=== PATIENT | male | born 1950 | race Caucasian/White ===

== ENCOUNTER 2018-12-29 18:29 | Inpatient (IN) | payer MEDICARE, OTHER ==
--- NOTE | 2018-12-29 18:46 | PDOC ---
Rapid Medical Evaluation Time Seen by Provider: 12/29/18 18:37 Medical Evaluation: Allergies Allergy/AdvReac Type Severity Reaction Status Date / Time codeine [Codeine] Allergy Verified 12/29/18 18:37 12/29/18 18:37 I have performed a brief in-person evaluation of this patient. The patient presents with a chief complaint of: Vertigo today, similar to in the past but worse today. H/o HTN, CABG Pertinent physical exam findings:Stable and non-focal I have ordered the following:labs The patient will proceed to the ED for further evaluation. Discharge Disposition - Diagnosis Vertigo - Referrals - Patient Instructions - Post Discharge Activity
[2018-12-29 19:20] LABS: BASO % 0.7 % (0-2.0); HEMATOCRIT 49.9 % (35.4-49); HEMOGLOBIN 16.1 GM/dL (11.7-16.9); MCH 28.1 pg (25.7-33.7); MCHC 32.3 g/dl (32.0-35.9); MEAN PLT VOLUME 9.4 fl (7.5-11.1); MONO % 5.1 % (3.8-10.2); NEUT % 78.2 % (42.8-82.8); PLATELET COUNT 145 K/MM3 (134-434); RBC 5.74 M/mm3 (4.00-5.60); RDW 14.4 % (11.9-15.9); WHITE BLOOD COUNT 7.9 K/mm3 (4.0-10.0)
[2018-12-29 19:41] LABS: BILIRUBIN,TOTAL 0.4 mg/dL (0.2-1); CALCIUM 8.8 mg/dL (8.5-10.1); CREATININE 1.3 mg/dL (0.55-1.3); POTASSIUM 4.5 mmol/L (3.5-5.1)
[2018-12-29 21:21] LABS: PH,URINE 5.5 (5.0-8.0); URINE APPEARANCE CLEAR; URINE BILIRUBIN NEGATIVE (NEGATIVE); URINE COLOR YELLOW; URINE GLUCOSE (UA) NEGATIVE (NEGATIVE); URINE KETONE NEGATIVE (NEGATIVE); URINE LEUK ESTERASE NEGATIVE (NEGATIVE); URINE NITRITE NEGATIVE (NEGATIVE); URINE PROTEIN NEGATIVE (NEGATIVE); URINE UROBILINOGEN 0.2 mg/dL (0.2-1.0)
--- NOTE | 2018-12-29 21:34 | PDOC ---
History of Present Illness - General Chief Complaint: Lightheaded Stated Complaint: DIZZINESS Time Seen by Provider: 12/29/18 18:37 History Source: Patient, Spouse ( present at bedside.), Old Records Exam Limitations: No Limitations - History of Present Illness Initial Comments: HPI: 68 y/o male presenting to [facility] ER complaining of two episodes of presyncope and loss of memory lasting approx. 3-4 min with return to baseline in between. States he was unable to recognize his . This made him feel scared. States the symptoms have resolved aside from a ringing in R and L ear. Denies associated room spinning, chest pain, SOB, fevers, chills, or diaphoresis. Had a similar episode approx. 2 months ago. He was evaluated at his PCPs clinic and told everything was fine. States he was in his full state of health prior to this episode. PCP: Dr. Bucky Ardon Medical Hx: - S/p Aortic valve replacement in 2010 at [facility]. On ASA. - HTN - HLD Review of Systems: In addition to that documented in the HPI above, the additional ROS was obtained : Constitutional: Denies fevers or chills Head: Denies vision changes ENMT: Denies sore throat CV: Denies chest pain Resp: Denies SOB GI: Denies vomiting or diarrhea : Denies painful urination MSK: Denies recent trauma Skin: Denies new rashes Neuro: Denies new numbness or tingling or weakness Endocrine: Denies polyuria Heme: Denies bleeding or bruising Physical Examination: Constitutional: Well-developed, well-nourished adult male in no acute distress or obvious discomfort. Found semi-fowlers on hospital bed. Alert and oriented x4. Answered all questions appropriately and completely. Speech was non-labored , non-pressured. Head: Normocephalic. No obvious external signs of trauma. Eyes: Pupils 4mm and PERRL bilaterally. EOMI. Lateral nystagmus to R and L that extinguishes. Sclerae white. Conjunctiva moist and not injected. Ears: External auditory canals and tympanic membranes pearly acosta. Hearing grossly intact. Nose: No nasal discharge. Throat: Oral cavity and pharynx normal. No inflammation, swelling, exudate, or lesions. Uvula midline. Neck: Supple, trachea is midline. No JVD. No carotid bruit. Cardiovascular / Chest: Regular rate and regular rhythm. No murmur, rubs, clicks , or gallops. Peripheral pulses: radial pulses full. Large midsternal post surgical scar. Respiratory: Breathing unlabored. Equal chest rise and fall. Clear to auscultation bilaterally. No stridor, no wheezing, no rhonchi. Gastrointestinal: abdomen is soft, non-tender, non-distended. No pulsatile masses. No overlying skin lesions or obvious signs of trauma. Neuro: Alert and oriented. Moving all four extremities spontaneously. No focal deficits. Cranial nerves intact. Sensation to all four extremities intact. Upper and lower extremity: proximal and distal strength 5/5. Smooth Plater strength 5/5 - equal and symmetric. Plantar flexion and dorsiflexion 5/5. Intact finger to nose, rapid alternating movements, and heel to yin. Gait normal. No nuchal rigidity. Skin: Warm, dry, and intact. No bruising, rashes, or other lesions. Psych: Affect: appropriate. Mood: normal. MDM: *Reviewed vital signs, nursing notes, and prior visit documentation (if available). 68 y/o male presenting with vague episodes of presyncope and memory loss with residual bilateral tinnitus. H/o of similar episode two months ago. No recent neurologic evaluation. Afebrile. Vitals unremarkable for hypotension or tachycardia. Physical exam as described above. Neurologically intact. Possible TIA versus cardiac presyncope. Risk factors including HTN and HLD. Already on ASA and Statin therapy. CBC unremarkable for anemia or leukocytosis. No significant electrolyte derangement. EKG unremarkable for ischemic findings. No changes when compared to previous EKG dated 12 November 2012. Troponin not elevated. Will repeat troponin and EKG at three hours. Will consult with neurology service for consideration of admission. 22:[address] Khan. Verbally appraised of the pts HPI, ED course, and current plan of management. Will evaluate as inpatient. 22:[address] Melton through office answering service. Awaiting call back. Unable to reach Dr. Melton after three pages. Microblog sent to [facility] for admission. 01:27 Telephone consultation with resident Dr. Sampson. Verbally appraised of the pts HPI, ED course, and current plan of management. Will admit pt to stroke/tele for attending Dr. Desai. Marcus Sal M.D., PGY1 Emergency Medicine Resident Past History - Past Medical History Allergies/Adverse Reactions: Allergies Allergy/AdvReac Type Severity Reaction Status Date / Time codeine [Codeine] Allergy Verified 12/29/18 18:37 Home Medications: Ambulatory Orders Aspirin [ASA -] 81 mg PO DAILY 12/29/18 Atorvastatin Ca [Lipitor] 20 mg PO HS 12/29/18 Metoprolol Succinate [Toprol Xl] 25 mg PO DAILY 12/29/18 Ramipril 2.5 mg PO DAILY 12/29/18 COPD: No HTN: Yes - Surgical History Cardiac Surgery: Yes (aortic regurg) - Immunization History Immunization Up to Date: No - Suicide/Smoking/Psychosocial Hx Smoking Status: No Smoking History: Never smoked Number of Cigarettes Smoked Daily: 0 Hx Alcohol Use: No Drug/Substance Use Hx: No *Physical Exam - Vital Signs Last Vital Signs Temp Pulse Resp BP Pulse Ox 97.7 F 67 18 149/81 98 12/29/18 18:41 12/29/18 18:41 12/29/18 18:41 12/29/18 18:41 12/29/18 18:41 ED Treatment Course - LABORATORY CBC & Chemistry Diagram: 12/29/18 19:14 12/29/18 19:14 - ADDITIONAL ORDERS Additional order review: Laboratory Results 12/29/18 12/29/18 20:40 19:14 Sodium 140 Potassium 4.5 Chloride 108 H Carbon Dioxide 26 Anion Gap 6 L BUN 28 H Creatinine 1.3 Est GFR (CKD-EPI)AfAm 64.98 Est GFR (CKD-EPI)NonAf 56.06 Random Glucose 95 Calcium 8.8 Total Bilirubin 0.4 AST 30 ALT 51 Alkaline Phosphatase 55 Troponin I 0.02 Total Protein 7.0 Albumin 4.0 Urine Color Yellow Urine Appearance Clear Urine pH 5.5 Ur Specific [place] 1.012 Urine Protein Negative Urine Glucose (UA) Negative Urine Ketones Negative Urine Blood Negative Urine Nitrite Negative Urine Bilirubin Negative Urine Urobilinogen 0.2 Ur Leukocyte Esterase Negative 12/29/18 19:14 RBC 5.74 H MCV 87.0 MCHC 32.3 RDW 14.4 MPV 9.4 Neutrophils % 78.2 Lymphocytes % 13.0 Monocytes % 5.1 Eosinophils % 3.0 D Basophils % 0.7 - RADIOLOGY Radiology Studies Ordered: Category Date Time Status HEAD CT WITHOUT CONTRAST [CT] Stat CT Scan 12/29/18 20:44 Ordered *DC/Admit/Observation/Transfer Diagnosis at time of Disposition: Pre-syncope, Transient ischemic attack (TIA) - Discharge Dispostion Condition at time of disposition: Stable Decision to Admit order: Yes - Referrals Referrals: Bucky Ardon MD [Primary Care Provider] - - Patient Instructions - Post Discharge Activity
--- NOTE | 2018-12-29 22:01 | PDOC ---
Documentation entered by Enoc Cheema SCRIBE, acting as scribe for Pineda Almonte MD. Pineda Almonte MD: This documentation has been prepared by the Anette cortes Matthew, SCRIBE, under my direction and personally reviewed by me in its entirety. I confirm that the documentation accurately reflects all work, treatment, procedures, and medical decision making performed by me. Attending Attestation - Resident Resident Name: Marcus Sal - ED Attending Attestation I have performed the following: I have examined & evaluated the patient, The case was reviewed & discussed with the resident, I agree w/resident's findings & plan, Exceptions are as noted - HPI HPI: 12/29/18 21:33 Patient is a 68 year old male with a significant past medical history of HTN, HLD, who presents to the ED with 2 transient episodes of confusion that occurred earlier this afternoon. Patient reports experiencing an episode of dizziness this afternoon, stating that he felt like he was going to faint. Denies any room spinning. Pt also states that during this episode he was very confused and did not know who is was. This lasted 3 minutes. He reports experiencing a similar transient episode shortly after, prompting him to come into the ED for further evaluation. Denies chest pain, sob. Denies nausea, vomiting. Denies fevers, chills. Denies contact with sick individuals, out of state travelling. Denies dysuria, hematuria. Denies constipation, diarrhea. Denies any other symptoms. Allergies: Codeine Social history: No smoking. No alcohol. No illicit drugs. Surgical history: None PMD: Dr. Bucky rodriguez - Physicial Exam PE: 12/29/18 21:59 "GENERAL: Awake, alert, and fully oriented, in no acute distress. HEAD: No signs of trauma EYES: PERRLA, EOMI, sclera anicteric, conjunctiva clear ENT: Auricles normal inspection, hearing grossly normal, nares patent, oropharynx clear without exudates. Moist mucosa NECK: Nontender, no stepoffs, Normal ROM, supple, no lymphadenopathy, JVD, or masses LUNGS: Breath sounds equal, clear to auscultation bilaterally. No wheezes, and no crackles HEART: Regular rate and rhythm, normal S1 and S2, no murmurs, rubs or gallops ABDOMEN: Soft, nontender, normoactive bowel sounds. No guarding, no rebound. No masses EXTREMITIES: Normal range of motion, no edema. No clubbing or cyanosis. No cords, erythema, or tenderness NEUROLOGICAL: Cranial nerves II through XII intact. 5/5 strength and sensation in all extremities, Normal speech, normal gait, normal cerebellar function SKIN: Warm, Dry, normal turgor, no rashes or lesions noted. - Medical Decision Making 12/29/18 22:00 68 M with 2 episodes of lightheadedness/presyncope and confusion. Will evaluate for cardiac arrhythmia. Pt with no neuro deficits now but also consider TIA. - Labs - CTH - EKG - Neuro c/s
--- NOTE | 2018-12-30 01:14 | PN ---
Teaching Attending Note Name of Resident: Lázaro Sampson ATTENDING PHYSICIAN STATEMENT I saw and evaluated the patient. I reviewed the resident's note and discussed the case with the resident. I agree with the resident's findings and plan as documented. SUBJECTIVE: Patient is a 68 year old man with a PMH of HTN, ?open-heart/aortic surgery and HLD who presents to the ER with 2 transient episodes of confusion that occurred earlier this afternoon. Patient reports experiencing an episode of dizziness this afternoon, stating that he felt like he was going to faint. Denies any room spinning. Also states that during this episode he was very confused and did not know who his was. This lasted 3 minutes. He reports experiencing a similar transient episode shortly after, prompting him to come into the ER. Denies chest pain, sob. Denies nausea, vomiting. Denies fevers, chills. Denies contact with sick individuals, out of state travelling. Denies dysuria, hematuria. Denies constipation, diarrhea. OBJECTIVE: Alert and not orthostatic Vital Signs Period Temp Pulse Resp BP Sys/Garcia Pulse Ox Last 24 Hr 97.7 F 62-67 16-18 149-153/81-83 98-99 HEENT: No Jaundice, eye redness or discharge, PERRLA, EOMI. Normocephalic, atraumatic. External ears are normal and hearing is grossly intact. No nasal discharge. Neck: Supple, nontender. No palpable adenopathy or thyromegaly. No JVD Chest: Good effort. Clear to auscultation and percussion. Heart: Regular. No S3 or rub; 2/6 NU Abdomen: Not distended, soft, nontender and no HSM. No rebound or guarding. Normal bowel sounds. Ext: Peripheral pulses intact. No leg edema. Skin: Warm and dry. No petechiae, rash or ecchymosis. Neuro: Alert. Oriented x3. CN 2-12 grossly intact. Sensation grossly intact in all four extremities and DTR are symmetric. Psych: Appropriate mood and affect. Good insight. Current Medications Generic Name Dose Route Start Last Admin Trade Name Freq PRN Reason Stop Dose Admin Sodium Chloride 1,000 mls @ 75 mls/hr 12/30/18 01:30 12/30/18 01:50 Normal Saline - IV 12/30/18 14:49 75 mls/hr ASDIR ANG Administration Home Medications Medication Instructions Recorded Aspirin [ASA -] 81 mg PO DAILY 12/29/18 Atorvastatin Ca [Lipitor] 20 mg PO HS 12/29/18 Metoprolol Succinate [Toprol Xl] 25 mg PO DAILY 12/29/18 Ramipril 2.5 mg PO DAILY 12/29/18 Abnormal Lab Results 12/29/18 12/29/18 19:14 19:14 RBC 5.74 H Hct 49.9 H Chloride 108 H Anion Gap 6 L BUN 28 H ASSESSMENT AND PLAN: 1. TIA - Patient symptom free at this time. No acute pathology on head CT. EKG is NSR with no significant ST-T wave changes. Will monitor on telemetry, get ECHO, carotid doppler, fasting lipids, TSH and brain MRI. Consult neurology and PT. 2. Overweight - Counseled on the risks associated with being overweight. Will provide patient all the necessary assistance, counseling and positive reinforcement to facilitate weight loss. Consult weigher bulker. 3. Hypertension - Restart outpatient antihypertensive drugs and revise regimen to ensure smooth [id number] good BP control. Nonpharmacologic measures to control hypertension like weight loss, salt restriction and exercise discussed. 4. DVT prophylaxis - Lovenox 40 mg SQ q 24 hours. 5. Advance directives - Full code
[2018-12-30] MEDS ORDERED: SODIUM CHLORIDE 1,000 ML IV SCH (01:30)
--- NOTE | 2018-12-30 02:27 | HP ---
CHIEF COMPLAINT: confusion PCP: Bucky Ardon HISTORY OF PRESENT ILLNESS: 68 year old male wit chawla hx of htn, hld, and vascular disease presents to the hospital with for 2 episodes of confusion and dizziness that occurred at 3pm today. Reports that he woke up around 3 and rolled over in bed when he noticed that he was dizzy and couldn't remember where his worked. Reports the episode lasting for about 3-4 minutes then resolving. Several minutes later he states that it recurred for a couple of minutes before resolving again. During the episode, he reports no loss of consciousness, headaches, blurry vision, chest pain, palpitations shortness of breath, nausea, vomiting, diarrhea , fevers, or chills. Currently states that he is asymptomatic and not having any more confusion or dizziness/vertigo. Reports no recent travel or sick contacts. ER course was notable for: (1) Head CT - (2) labs norm (3) Recent Travel: denies PAST MEDICAL HISTORY: HTN, HLD, vascular disease PAST SURGICAL HISTORY: open heart surgery in 2010 at [facility] for an "aorta" issue, but patient was not 100% clear during history Social History: Smoking: former smoker, started at 6yo, quit in 2010, smoked 2ppd Alcohol: denies Drugs: denies Allergies codeine [Codeine] Allergy (Verified 12/29/18 18:37) HOME MEDICATIONS: Home Medications Medication Instructions Recorded Aspirin [ASA -] 81 mg PO DAILY 12/29/18 Atorvastatin Ca [Lipitor] 20 mg PO HS 12/29/18 Metoprolol Succinate [Toprol Xl] 25 mg PO DAILY 12/29/18 Ramipril 2.5 mg PO DAILY 12/29/18 REVIEW OF SYSTEMS CONSTITUTIONAL: Absent: fever, chills, diaphoresis, generalized weakness, malaise, loss of appetite, weight change HEENT: Absent: rhinorrhea, nasal congestion, throat pain, throat swelling, difficulty swallowing, mouth swelling, ear pain, eye pain, visual changes CARDIOVASCULAR: Absent: chest pain, syncope, palpitations, irregular heart rate, lightheadedness , peripheral edema RESPIRATORY: Absent: cough, shortness of breath, dyspnea with exertion, orthopnea, wheezing, stridor, hemoptysis GASTROINTESTINAL: Absent: abdominal pain, abdominal distension, nausea, vomiting, diarrhea, constipation, melena, hematochezia GENITOURINARY: Absent: dysuria, frequency, urgency, hesitancy, hematuria, flank pain, genital pain MUSCULOSKELETAL: Absent: myalgia, arthralgia, joint swelling, back pain, neck pain SKIN: Absent: rash, itching, pallor HEMATOLOGIC/IMMUNOLOGIC: Absent: easy bleeding, easy bruising, lymphadenopathy, frequent infections ENDOCRINE: Absent: unexplained weight gain, unexplained weight loss, heat intolerance, cold intolerance NEUROLOGIC: Absent: headache, focal weakness or paresthesias, dizziness, unsteady gait, seizure, mental status changes, bladder or bowel incontinence PSYCHIATRIC: Absent: anxiety, depression, suicidal or homicidal ideation, hallucinations. PHYSICAL EXAMINATION Vital Signs - 24 hr 12/29/18 12/30/18 18:41 01:37 Temperature 97.7 F Pulse Rate 67 Pulse Rate [ 62 Right] Respiratory 18 16 Rate Blood Pressure 149/81 Blood Pressure 153/83 [Right Arm] O2 Sat by Pulse 98 99 Oximetry (%) GENERAL: A&Ox3, no acute distress EYES: PERRLA, EOMI, conjunctival injetion bilaterally, mild nystagmus on horizontal gaze noted ENT: Moist mucus membranes NECK: No JVD LUNGS: CTA, no wheezes HEART: soft systolic murmur noted on exam, otherwise RRR ABDOMEN: Soft, nontender, BS present MUSCULOSKELETAL: No CVA Tenderness EXTREMITIES: 2+ pulses, no edema. NEUROLOGICAL: Cranial nerves II-XII intact. No focal deficits Laboratory Results - last 24 hr 12/29/18 12/29/18 12/29/18 19:14 19:14 20:40 WBC 7.9 RBC 5.74 H Hgb 16.1 Hct 49.9 H MCV 87.0 MCH 28.1 MCHC 32.3 RDW 14.4 Plt Count 145 MPV 9.4 Absolute Neuts (auto) 6.2 Neutrophils % 78.2 Lymphocytes % 13.0 Monocytes % 5.1 Eosinophils % 3.0 D Basophils % 0.7 Nucleated RBC % 0 Sodium 140 Potassium 4.5 Chloride 108 H Carbon Dioxide 26 Anion Gap 6 L BUN 28 H Creatinine 1.3 Est GFR (CKD-EPI)AfAm 64.98 Est GFR (CKD-EPI)NonAf 56.06 Random Glucose 95 Calcium 8.8 Total Bilirubin 0.4 AST 30 ALT 51 Alkaline Phosphatase 55 Troponin I 0.02 Total Protein 7.0 Albumin 4.0 Urine Color Yellow Urine Appearance Clear Urine pH 5.5 Ur Specific [place] 1.012 Urine Protein Negative Urine Glucose (UA) Negative Urine Ketones Negative Urine Blood Negative Urine Nitrite Negative Urine Bilirubin Negative Urine Urobilinogen 0.2 Ur Leukocyte Esterase Negative 12/29/18 23:00 WBC RBC Hgb Hct MCV MCH MCHC RDW Plt Count MPV Absolute Neuts (auto) Neutrophils % Lymphocytes % Monocytes % Eosinophils % Basophils % Nucleated RBC % Sodium Potassium Chloride Carbon Dioxide Anion Gap BUN Creatinine Est GFR (CKD-EPI)AfAm Est GFR (CKD-EPI)NonAf Random Glucose Calcium Total Bilirubin AST ALT Alkaline Phosphatase Troponin I 0.02 Total Protein Albumin Urine Color Urine Appearance Urine pH Ur Specific [place] Urine Protein Urine Glucose (UA) Urine Ketones Urine Blood Urine Nitrite Urine Bilirubin Urine Urobilinogen Ur Leukocyte Esterase ASSESSMENT/PLAN: 68 year old male wit chawla hx of htn, hld, and vascular disease presents to the hospital with for 2 episodes of confusion and dizziness that occurred at 3pm today #Altered Mental Status: unclear etiology, could be related to TIA/CVA vs dehydration -orthostatic vitals -CT head negative -will get MRI -neuro consultation -telemetry monitoring -echocardiogram -carotid doppler -continue home ASA #Hypertension -continue ramipril and metoprolol #Hyperlipidemia -continue atorvastatin FEN -NS @ 75cc/hr -lytes normal -cholesterol controlled diet Prophylaxis -scds Disposition -admit tele obs Visit type - Emergency Visit Emergency Visit: Yes Care time: The patient presented to the Emergency Department on the above date and was hospitalized for further evaluation of their emergent condition. - New Patient This patient is new to me today: Yes Date on this admission: 12/30/18 - Critical Care Critical Care patient: No
[2018-12-30 02:47] VITALS: BMI 28.0
[2018-12-30 07:44] LABS: INR 1.02 (0.83-1.09)
[2018-12-30 08:11] LABS: CALCIUM 8.4 mg/dL (8.5-10.1); POTASSIUM 4.2 mmol/L (3.5-5.1)
--- NOTE | 2018-12-30 09:41 | CON.NEURO ---
Consult - Alcohol/Substance Use Hx Alcohol Use: No - Smoking History Smoking history: Former smoker Have you smoked in the past 12 months: No Aproximately how many cigarettes per day: 0 Home Medications - Allergies Allergies/Adverse Reactions: Allergies Allergy/AdvReac Type Severity Reaction Status Date / Time codeine [Codeine] Allergy Verified 12/29/18 18:37 - Home Medications Home Medications: Ambulatory Orders Aspirin [ASA -] 81 mg PO DAILY 12/29/18 Atorvastatin Ca [Lipitor] 20 mg PO HS 12/29/18 Metoprolol Succinate [Toprol Xl] 25 mg PO DAILY 12/29/18 Ramipril 2.5 mg PO DAILY 12/29/18 Physical Exam-Neuro Vital Signs: Vital Signs Temperature 97.5 F L 12/30/18 06:00 Pulse Rate 64 12/30/18 08:57 Respiratory Rate 18 12/30/18 06:00 Blood Pressure 135/63 12/30/18 08:57 O2 Sat by Pulse Oximetry (%) 95 12/30/18 02:15 Labs: CBC, BMP 12/29/18 19:14 12/30/18 05:30 INR, PTT INR 1.02 (0.83-1.09) 12/30/18 05:30 Assessment/Plan cc Episode of dizziness and memory lapse HPI 68 year old male history of HTN,HLD, S/P CABG. Patient has two episode of confusion and dizziness, which he describes as feeling of fuzyzy and everything turning black. He could not remember anything for those three minute. Patient denies any otehr focal neurological symptoms, including seizure like activity, hemiparesis, numbness or facial twtitching. His ct head is normal. He denies any previous episode in past. Patient is back to normal, and waiting for mri of brain and being monitered in tele. PMHHTN, HLD, vascular disease [SH open heart surgery in 2010 at [facility] for an "aorta" issue, but patient was not 100% clear during history Social History: Smoking: former smoker, started at 6yo, quit in 2010, smoked 2ppd Alcohol: denies Drugs: denies Allergies codeine [Codeine] Allergy (Verified 12/29/18 18:37) HOME MEDICATIONS: Home Medications Medication Instructions Recorded Aspirin [ASA -] 81 mg PO DAILY 12/29/18 Atorvastatin Ca [Lipitor] 20 mg PO HS 12/29/18 Metoprolol Succinate [Toprol Xl] 25 mg PO DAILY 12/29/18 Ramipril 2.5 mg PO DAILY 12/29/18 ROS reviewed in chart NEUROLOGICAL EXAMINATION Alert oriented x 3, speech is normal, no neck stiffness EOMI, PUPILS REACTIVE , no face asymmetry, vf normal 5/5 all ext sensation is normal gait and coordination is normal ct head is normal Assessment/Plan 68 year old male history of HTN,HLD, s/p CABG had two episode of dizziness and confusion, these episodes appears to be global hypoperfusion of brain rather than TIA. Plan: life style modification and risk factor treatment discussed with patient - tele monitoring - mri of brain and carotid ultrasound - continue aspirin and increase dose of lipitor to 40 mg once a day - if any positive findings on mri of brain , consider switching to plavix Thanking you so much Aung Khan MD
[2018-12-30] MEDS: RAMIPRIL 2.5 MG CAPSULE (FP) PO SCH (10:20)
[2018-12-30] MEDS: ASPIRIN 81 MG CHEWABLE TABLETS PO SCH (10:20)
[2018-12-30] MEDS: metoPROLOL SUCCINATE 25 MG TAB.SR.24H (FP) PO SCH (10:20)
--- NOTE | 2018-12-30 10:56 | ECHO ---
Version: 1 Name: KESHAV DESAI Exam: Adult Echocardiogram Study Date: 12/30/2018, 7:54 AM Age: 68 Years MMode/2D Measurements & Calculations IVSd: 0.99 cm LVIDs: 2.8 cm LVIDd: 4.5 cm LVPWd: 0.89 cm LVOT diam: 2.02 cm Ao root diam: 4.3 cm LA dimension: 3.0 cm Doppler Measurements & Calculations MV E max jarett: 74.2 cm/sec Med E/e': 9.7 MV A max jarett: 65.5 cm/sec Med Peak E' Jarett: 7.6 cm/sec MV E/A: 1.13 Lat E/e': 8.7 Lat Peak E' Jarett: 8.5 cm/sec Ao max P.2 mmHg Ao V2 max: 160.0 cm/sec AI P1/2t: 808.3 msec TR max jarett: 188.2 cm/sec TR max P.6 mmHg Procedure A complete two-dimensional transthoracic echocardiogram was performed (2D, M-mode, Doppler and color flow Doppler). Left Ventricle The left ventricular size, thickness and function are normal. Ejection Fraction = 60%. The transmitr al spectral Doppler flow pattern is suggestive of impaired LV relaxation. The left ventricular wall mot ion is normal. Right Ventricle The right ventricle is normal in size and function. Atria Normal left and right atrial size and function. Mitral Valve The mitral valve is normal in structure and function. Tricuspid Valve The tricuspid valve is normal in structure and function. There is Trace to mild tricuspid regurgitat ion. Right ventricular systolic pressure is 20 mmhg. Aortic Valve There is moderate to severe aortic valve thickening. No hemodynamically significant valvular aortic stenosis. Trace aortic regurgitation. Pulmonic Valve The pulmonic valve is not well visualized. Great Vessels The aortic root is normal size. Pericardium/Pleura There is no pericardial effusion. There is no pleural effusion. Summary Statements The left ventricular size, thickness and function are normal Ejection Fraction = 60%. The right ventricle is normal in size and function. The mitral valve is normal in structure and function. There is Trace to mild tricuspid regurgitation. Right ventricular systolic pressure is 20 mmhg. There is moderate to severe aortic valve thickening. No hemodynamically significant valvular aortic stenosis. Trace aortic regurgitation. MD Ludwig Orantes 12/30/2018, 9:55 AM Ordering Physician: Lázaro Sampson Performed By: Lilian Knight
[2018-12-30] MEDS ORDERED: LORazepam 2 MG/ML SDV VIAL ONE (11:09)
--- NOTE | 2018-12-30 11:14 | RAPID ---
Physical Examination Vital Signs: Vital Signs Temperature 98 F 12/30/18 09:29 Pulse Rate 60 12/30/18 09:29 Respiratory Rate 18 12/30/18 09:29 Blood Pressure 135/75 12/30/18 09:29 O2 Sat by Pulse Oximetry (%) 95 12/30/18 02:15 Labs: CBC, BMP 12/29/18 19:14 12/30/18 05:30 Rapid Response - Rapid Response Assessment: rapid response called pt c/o of dizziness and chest pain and seeing colors 130/80s, HR 57, 94% RA agitated AOX3 CTAB RRR NTND Neuro no focal deficits see NIHSS. pt admitted for ams possibly 2/2 TIA labs this AM have been nl trop negx2, neg CT head echo: The left ventricular size, thickness and function are normal Ejection Fraction = 60%. The right ventricle is normal in size and function. The mitral valve is normal in structure and function. There is Trace to mild tricuspid regurgitation. Right ventricular systolic pressure is 20 mmhg. There is moderate to severe aortic valve thickening. No hemodynamically significant valvular aortic stenosis. Trace aortic regurgitatio will call code acosta and rpt labs ekg done and unchanges w/o ischemic changes rpt trops given cp and cardiac pmh will rpt head ct brain neck CTA CXR carotid u/s Suspected CVA - NIH Stroke Scale/Score Level of consciousness: Alert Ask patient the month and their age: Answers both correctly Ask patient to open & close eyes; make fist and let go: Obeys both correctly Best gaze (horizontal eye movement): Normal Visual field testing: No visual field loss Facial paresis (Show teeth/raise eyebrows/close eyes tight): Normal symmetrical movement Motor Function: Left Arm: Normal Motor Function: Right Arm: Normal (extends arm 90 (or 45) degrees for 10 seconds without drift Motor Function: Left Leg: Normal (extends leg 30 degrees for 5 seconds without drift) Motor Function: Right Leg: Normal (extends leg 30 degrees for 5 seconds without drift) Limb Ataxia: No ataxia Sensory(Use pinprick test arms,legs,trunk,face/side to side): Normal Best language (Describe picture, name items, read sentences): No Aphasia Dysarthria (read several words): Normal articulation Extinction and Inattention: No abnormality NIH Stroke Scale Score: 0
[2018-12-30] MEDS ORDERED: LORazepam 2 MG/ML SDV VIAL IVPUSH ONE ×2 (11:20→11:40)
[2018-12-30 11:25] LABS: BASO % 0.9 % (0-2.0); EOS % 5.5 % (0-4.5); HEMATOCRIT 51.5 % (35.4-49); HEMOGLOBIN 16.4 GM/dL (11.7-16.9); MCHC 31.8 g/dl (32.0-35.9); MEAN PLT VOLUME 9.5 fl (7.5-11.1); MONO % 7.8 % (3.8-10.2); NEUT % 62.8 % (42.8-82.8); PLATELET COUNT 146 K/MM3 (134-434); RBC 5.85 M/mm3 (4.00-5.60); RDW 14.3 % (11.9-15.9); WHITE BLOOD COUNT 7.3 K/mm3 (4.0-10.0)
--- NOTE | 2018-12-30 11:40 | CONSULT ---
Consult Consult Specialty:: Pulm/CCM Referred by:: Dr. Nielson Reason for Consultation:: suspected stroke - History of Present Illness History of Present Illness: 68 yo M hx of htn, hld, and CAD s/p CABG admitted to the hospital for AMS and dizziness being worked up for stroke. Rapid response was called around 10:30am for acute chest pain, seeing colors, and dizziness. [facility] flood was then called for AMS. During the hospitalization, trop negative x 2, CT head negative, ECHO is essentially wnl. Essentially normal neuro exam performed by international marketing coordinator who responded to the code. Vitals are stable. - Alcohol/Substance Use Hx Alcohol Use: No - Smoking History Smoking history: Former smoker Have you smoked in the past 12 months: No Aproximately how many cigarettes per day: 0 Home Medications - Allergies Allergies/Adverse Reactions: Allergies Allergy/AdvReac Type Severity Reaction Status Date / Time codeine [Codeine] Allergy Verified 12/29/18 18:37 - Home Medications Home Medications: Ambulatory Orders Aspirin [ASA -] 81 mg PO DAILY 12/29/18 Atorvastatin Ca [Lipitor] 20 mg PO HS 12/29/18 Metoprolol Succinate [Toprol Xl] 25 mg PO DAILY 12/29/18 Ramipril 2.5 mg PO DAILY 12/29/18 Physical Exam Vital Signs: Vital Signs Temperature 98 F 12/30/18 09:29 Pulse Rate 60 12/30/18 09:29 Respiratory Rate 18 12/30/18 09:29 Blood Pressure 135/75 12/30/18 09:29 O2 Sat by Pulse Oximetry (%) 95 12/30/18 02:15 Constitutional: Yes: No Distress Cardiovascular: Yes: Regular Rate and Rhythm, S1, S2. No: Murmur Respiratory: Yes: CTA Bilaterally Neurological: Yes: Alert, Oriented, Other (Neuro exam not complete as patient was being transported to CT). No: Numbness, Paresthesia, Weakness ...Motor Strength: WNL Labs: CBC, BMP 12/30/18 11:00 Assessment/Plan 68 yo M hx of htn, hld, and CAD s/p CABG admitted to the hospital for AMS being worked up for TIA. Rapid response and haven flood called on the patient due to similar presenting symptoms at rest. Now being evaluated by CCM. Neuro: AAO x 2, global hypoperfusion vs. TIA - previous negative CT head - will f/u on repeat CT head and CTA neck - cont. to trend mental status CV: h/o CAD s/p CABG, chest pain, HTN, HLD - ACS workup, cycle trop to peak Pulm: stable - O2 sat 94% on RA - supplemental O2 to maintain 100% for better perfusion Case discussed with ICU attending. Patient is currently hemodynamically stable and will not require thrombolytics. Will follow up on ACS workup, CT and CTA. No emergent need for ICU level of care for now but will admit to ICU should he becomes hemodynamically unstable. Catrachito King PGY3 Visit type - Emergency Visit Emergency Visit: No - New Patient This patient is new to me today: Yes Date on this admission: 12/30/18 - Critical Care Critical Care patient: No Total Critical Care Time (in minutes): 20
[2018-12-30 12:03] LABS: ALBUMIN 3.7 g/dl (3.4-5.0); BILIRUBIN,TOTAL 0.6 mg/dL (0.2-1); CALCIUM 8.5 mg/dL (8.5-10.1); CREATININE 1.1 mg/dL (0.55-1.3); PHOSPHOROUS 2.5 mg/dL (2.5-4.9); POTASSIUM 4.3 mmol/L (3.5-5.1); TOT PROT 6.7 g/dl (6.4-8.2)
--- NOTE | 2018-12-30 12:06 | EKG ---
Test Reason : Blood Pressure : / mmHG Vent. Rate : 071 BPM Atrial Rate : 071 BPM P-R Int : 186 ms QRS Dur : 092 ms QT Int : 386 ms P-R-T Axes : 035 064 009 degrees QTc Int : 419 ms NORMAL SINUS RHYTHM NORMAL ECG WHEN COMPARED WITH ECG OF 29-DEC-2018 23:14, NO SIGNIFICANT CHANGE WAS FOUND Confirmed by MD Dorsey Daniel ([id number]) on 12/30/2018 12:05:42 PM Referred By: Confirmed By:Juan Dorsey MD
--- NOTE | 2018-12-30 12:07 | EKG ---
Test Reason : Blood Pressure : / mmHG Vent. Rate : 057 BPM Atrial Rate : 057 BPM P-R Int : 190 ms QRS Dur : 094 ms QT Int : 424 ms P-R-T Axes : -07 054 021 degrees QTc Int : 412 ms SINUS BRADYCARDIA OTHERWISE NORMAL ECG WHEN COMPARED WITH ECG OF 29-DEC-2018 19:03, NO SIGNIFICANT CHANGE WAS FOUND Confirmed by MD Dorsey Daniel ([id number]) on 12/30/2018 12:07:23 PM Referred By: Confirmed By:Juan Dorsey MD
--- NOTE | 2018-12-30 12:08 | EKG ---
Test Reason : Blood Pressure : / mmHG Vent. Rate : 066 BPM Atrial Rate : 066 BPM P-R Int : 186 ms QRS Dur : 100 ms QT Int : 394 ms P-R-T Axes : 049 059 040 degrees QTc Int : 413 ms NORMAL SINUS RHYTHM NORMAL ECG WHEN COMPARED WITH ECG OF 18-AUG-2011 09:56, QUESTIONABLE CHANGE IN QRS AXIS Confirmed by MD Dorsey Daniel ([id number]) on 12/30/2018 12:08:25 PM Referred By: Confirmed By:Juan Dorsey MD
--- NOTE | 2018-12-30 12:09 | CONSULT ---
Admitting History and Physical - Admission History of Present Illness: 68 yo M hx of htn, hld, and CAD s/p CABG admitted to the hospital for AMS, 2 episodes of confusion and dizziness being worked up for stroke. Rapid response was called around 10:30am for acute chest pain, seeing colors, and dizziness. [facility] flood was then called for AMS. During the hospitalization, trop negative x 2, CT head negative, ECHO is essentially wnl. Essentially normal neuro exam performed by management intern who responded to the code. Vitals are stable. History Source: Patient, Family Member Limitations to Obtaining History: No Limitations - Smoking History Smoking history: Former smoker Have you smoked in the past 12 months: No Aproximately how many cigarettes per day: 0 - Alcohol/Substance Use Hx Alcohol Use: No History - Admission Reason For Visit: TRANSIENT ISHCEMIC ATTACK, PRE-SYNCOPE - Diagnostics X-ray: Report Reviewed CT Scan: Report Reviewed - General Mental Status: Alert and Oriented, Awake and Alert, Able to Follow Commands Attention: Intact Ability to Follow Directions: Excellent Head/Neck Control: WFL - Hearing Hearing: Normal Speech Evaluation - Communication Primary Language: WOLOF Secondary Language: SCOTTISH (fluent) Communication: Yes: Within Normal Limits Oral Expression Ability: Yes: No Impairment - Speech Production Able to Make Needs Known: Yes: WNL Intelligibility: Yes: WNL - Speech Characteristics Voice Loudness: Normal Voice Pitch: Yes: Normal Voice Phonatory-based Quality: Yes: Normal Speech Pattern: Normal Speech Clarity: < 100% Nasal Resonance: Normal Articulation: Yes: Precise - Language/Auditory Comprehension Follows: Yes: 2 Stage Simple Commands Observation: Able to respond to yes/no queries: Yes, Yes/No Confusion: No, Comprehends Conversational Speech: Yes - Language/Verbal Expression Able to Respond to Simple Queries: Yes: WNL Able to Communicate Wants and Needs: Yes: WNL Functional Communication Status: Yes: WNL - 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[employer] Memory: Yes: WNL Short Term Memory: Yes: WNL - Swallow Evaluation/Bedside Assessment Current Nutritional Intake: Regular, Thin Liquids Oral Secretions: Yes: WFL Dentition: Yes: Adequate Facial Symmetry at Rest: Symmetrical Facial Symmetry on Retraction: Symmetrical Sensation: Normal Against Resistance Opening: Normal Against Resistance Closing: Normal Pucker Lips: Normal Smile: Normal Lingual Movement: Normal, Symmetric Lingual Speed of Movement: Normal Lingual Movement Strgth Against Opposition: Normal Laryngeal Elevation: WFL Laryngeal Movement: Able to Palpate Rate of Intake: WFL Bolus Size: WFL Chewing: WFL Oral Prep Time: WFL A-P Transit: WFL Pocketing: None Timing of Swallow: WFL Coughing/Throat Clear: No Change in Voice: No Recommendations - Speech Evaluation, Impression/Plan Impression: Speech production, language, cognition, swallowing intact. - Dysphagia Impressions/Plan Swallowing Skills: WFL Dysphagia Impressions: No Impairment *Silent aspiration: cannot be R/O at bedside - Recommendations Diet Consistency: Regular Medication Administration: Whole with water Liquids: Thin Liquids
[2018-12-30] MEDS: ATORVASTATIN CA 40 MG TABLET (FP) PO SCH (21:03)
[2018-12-30] MEDS ORDERED: ATORVASTATIN CA 20 MG TABLET (FP) PO SCH (22:00)
--- NOTE | 2018-12-30 22:39 | CON.CARD ---
Consult Consult Specialty:: Cardiology - History of Present Illness History of Present Illness: Patient is a 68 year old man with a PMH of HTN, ?open-heart/aortic surgery and HLD who presents to the ER with 2 transient episodes of confusion that occurred earlier this afternoon. Patient reports experiencing an episode of dizziness this afternoon, stating that he felt like he was going to faint. Denies any room spinning. Also states that during this episode he was very confused and did not know who his was. This lasted 3 minutes. He reports experiencing a similar transient episode shortly after, prompting him to come into the ER. Denies chest pain, sob. Denies nausea, vomiting. Denies fevers, chills. Denies contact with sick individuals, out of state travelling. Denies dysuria, hematuria. Denies constipation, diarrhea. - History Source History Provided By: Patient, Medical Record - Past Medical History Cardio/Vascular: Yes: CAD, HTN, Hyperlipdemia - Past Surgical History Past Surgical History: Yes: CABG - Alcohol/Substance Use Hx Alcohol Use: No - Smoking History Smoking history: Former smoker Have you smoked in the past 12 months: No Aproximately how many cigarettes per day: 0 Home Medications - Allergies Allergies/Adverse Reactions: Allergies Allergy/AdvReac Type Severity Reaction Status Date / Time codeine [Codeine] Allergy Verified 12/29/18 18:37 - Home Medications Home Medications: Ambulatory Orders Aspirin [ASA -] 81 mg PO DAILY 12/29/18 Atorvastatin Ca [Lipitor] 20 mg PO HS 12/29/18 Metoprolol Succinate [Toprol Xl] 25 mg PO DAILY 12/29/18 Ramipril 2.5 mg PO DAILY 12/29/18 Review of Systems - Review of Systems Constitutional: reports: No Symptoms Eyes: reports: No Symptoms HENT: reports: No Symptoms Neck: reports: No Symptoms Cardiovascular: reports: No Symptoms Gastrointestinal: reports: No Symptoms Genitourinary: reports: No Symptoms Breasts: reports: No Symptoms Reported Musculoskeletal: reports: No Symptoms Integumentary: reports: No Symptoms Neurological: reports: Confusion Endocrine: reports: No Symptoms Hematology/Lymphatic: reports: No Symptoms Psychiatric: reports: No Symptoms Vital Signs: Vital Signs Temperature 97.8 F 12/30/18 22:00 Pulse Rate 68 12/30/18 22:00 Respiratory Rate 18 12/30/18 22:00 Blood Pressure 117/74 12/30/18 22:00 O2 Sat by Pulse Oximetry (%) 95 12/30/18 19:49 Constitutional: Yes: Well Nourished, No Distress, Calm Eyes: Yes: WNL, Conjunctiva Clear, EOM Intact HENT: Yes: WNL, Atraumatic, Normocephalic Neck: Yes: WNL, Supple, Trachea Midline Respiratory: Yes: WNL, Regular, CTA Bilaterally Gastrointestinal: Yes: WNL, Normal Bowel Sounds Renal/: Yes: WNL Cardiovascular: Yes: WNL, Regular Rate and Rhythm Musculoskeletal: Yes: WNL Extremities: Yes: WNL Integumentary: Yes: WNL Neurological: Yes: WNL, Alert, Oriented ...Motor Strength: WNL Psychiatric: Yes: WNL, Alert, Oriented - Other Data Labs, Other Data: CBC, BMP 12/30/18 11:00 12/30/18 11:00 INR, PTT INR 1.02 (0.83-1.09) 12/30/18 05:30 Troponin, BNP 12/29/18 12/30/18 23:00 11:00 Troponin I 0.02 0.02 Troponin, BNP 12/29/18 12/30/18 23:00 11:00 Troponin I 0.02 0.02 Imaging - Results Chest X-ray: Image Reviewed (no i/e) EKG: Image Reviewed (nsr wnl) Problem List - Problems (1) Pre-syncope Code(s): R55 - SYNCOPE AND COLLAPSE (2) Transient ischemic attack (TIA) Code(s): G45.9 - TRANSIENT CEREBRAL ISCHEMIC ATTACK, UNSPECIFIED Assessment/Plan confusion r/o tia presyncope cad s/p CABG htn Plan echo r/o mi neurology evaluation
--- NOTE | 2018-12-31 08:46 | PN ---
Progress Note (short form) - Note Progress Note: 68 year old male history of HTN,HLD, S/P CABG. Patient has two episode of confusion and dizziness, which he describes as feeling of fuzyzy and everything turning black. He could not remember anything for those three minute. Patient denies any otehr focal neurological symptoms, including seizure like activity, hemiparesis, numbness or facial twtitching. His ct head is normal. He denies any previous episode in past. His mri of brain is normal, cta of neck is noraml. He has one episode yesterday , he complain of chest pain and agitation. I suspect he may have panic reaction NEUROLOGICAL EXAMINATION Alert oriented x 3, speech is normal, no neck stiffness EOMI, PUPILS REACTIVE , no face asymmetry, vf normal 5/5 all ext sensation is normal gait and coordination is normal ct head is normal mri of brain is normal except white matter disease cta of neck no critical stenosis Assessment/Plan 68 year old male history of HTN,HLD, s/p CABG had two episode of dizziness and confusion, these episode seems to be presyncopal episode. Work up negative 2. one episode of agitation yesterday ? panic reaction Plan: life style modification and risk factor treatment discussed with patient - continue aspirin and statin - watch for now Thanking you so much Aung Khan MD
[2018-12-31] MEDS: ASPIRIN 81 MG CHEWABLE TABLETS PO SCH (10:28)
[2018-12-31] MEDS: RAMIPRIL 2.5 MG CAPSULE (FP) PO SCH (10:28)
[2018-12-31] MEDS: metoPROLOL SUCCINATE 25 MG TAB.SR.24H (FP) PO SCH (10:28)
--- NOTE | 2018-12-31 10:59 | PN ---
Progress Note, HAND BANDER - Note Progress Note: Selected Entries 12/30/18 12/30/18 12/30/18 02:15 06:00 09:29 Breakfast Lunch Supper Temperature 97.6 F 97.5 F L 98 F 12/30/18 12/30/18 12/30/18 11:47 15:18 18:00 Breakfast 100% Lunch 100% Supper Temperature 98.2 F 12/30/18 12/30/18 12/31/18 22:00 22:48 02:00 Breakfast Lunch Supper 100% Temperature 97.8 F 97.9 F 12/31/18 06:00 Breakfast Lunch Supper Temperature 98.1 F Laboratory Tests 12/30/18 11:00 WBC 7.3 Tolerating diet. Continued normal sp/sw/cognition. No further f/u indicated.
--- NOTE | 2018-12-31 12:20 | PN ---
Progress Note, Physician History of Present Illness: Patient is a 68 year old man with a PMH of HTN, ?open-heart/aortic surgery and HLD who presents to the ER with 2 transient episodes of confusion that occurred earlier this afternoon. Patient reports experiencing an episode of dizziness this afternoon, stating that he felt like he was going to faint. Denies any room spinning. Also states that during this episode he was very confused and did not know who his was. This lasted 3 minutes. He reports experiencing a similar transient episode shortly after, prompting him to come into the ER. Denies chest pain, sob. Denies nausea, vomiting. Denies fevers, chills. Denies contact with sick individuals, out of state travelling. Denies dysuria, hematuria. Denies constipation, diarrhea. - Current Medication List Current Medications: Active Medications Aspirin (Asa -) 81 mg PO DAILY [facility] Last Admin: 12/31/18 10:28 Dose: 81 mg Atorvastatin Calcium (Lipitor -) 40 mg PO HS [facility] Last Admin: 12/30/18 21:03 Dose: 40 mg Metoprolol Succinate (Toprol Xl -) 25 mg PO DAILY [facility] Last Admin: 12/31/18 10:28 Dose: 25 mg Ramipril (Altace -) 2.5 mg PO DAILY [facility] Last Admin: 12/31/18 10:28 Dose: 2.5 mg - Objective Vital Signs: Vital Signs Temperature 97.9 F 12/31/18 10:00 Pulse Rate 65 12/31/18 10:00 Respiratory Rate 18 12/31/18 10:00 Blood Pressure 115/70 12/31/18 10:00 O2 Sat by Pulse Oximetry (%) 95 12/31/18 09:00 Eyes: Yes: WNL, Conjunctiva Clear, EOM Intact HENT: Yes: WNL, Atraumatic, Normocephalic Neck: Yes: WNL, Supple, Trachea Midline Cardiovascular: Yes: WNL, Regular Rate and Rhythm Respiratory: Yes: WNL, Regular, CTA Bilaterally Gastrointestinal: Yes: WNL, Normal Bowel Sounds Genitourinary: Yes: WNL Musculoskeletal: Yes: WNL Extremities: Yes: WNL Edema: No Integumentary: Yes: WNL Neurological: Yes: WNL, Alert, Oriented ...Motor Strength: WNL Psychiatric: Yes: WNL Labs: CBC, BMP 12/30/18 11:00 05/14/19 11:00 INR, PTT INR 1.02 (0.83-1.09) 12/30/18 05:30 Problem List - Problems (1) Pre-syncope Code(s): R55 - SYNCOPE AND COLLAPSE (2) Transient ischemic attack (TIA) Code(s): G45.9 - TRANSIENT CEREBRAL ISCHEMIC ATTACK, UNSPECIFIED Assessment/Plan confusion r/o tia presyncope cad s/p CABG aortic aneurysm htn echo nl ef r/o mi neg cta neck - no carotid artery stenosis neurology evaluation appreciated Plan cont statins asa bb cont telemetry 24 holter obtain old records regarding aortic aneurysm -if no repair will need chest CTA
[2018-12-31] MEDS: ATORVASTATIN CA 40 MG TABLET (FP) PO SCH (21:55)
--- NOTE | 2018-12-31 22:02 | PN ---
Progress Note, Physician - Current Medication List Current Medications: Active Medications Aspirin (Asa -) 81 mg PO DAILY [facility] Last Admin: 12/31/18 10:28 Dose: 81 mg Atorvastatin Calcium (Lipitor -) 40 mg PO HS [facility] Last Admin: 12/31/18 21:55 Dose: 40 mg Metoprolol Succinate (Toprol Xl -) 25 mg PO DAILY [facility] Last Admin: 12/31/18 10:28 Dose: 25 mg Ramipril (Altace -) 2.5 mg PO DAILY [facility] Last Admin: 12/31/18 10:28 Dose: 2.5 mg - Objective Vital Signs: Vital Signs Temperature 97.8 F 12/31/18 20:15 Pulse Rate 68 12/31/18 20:15 Respiratory Rate 20 12/31/18 20:15 Blood Pressure 108/60 12/31/18 20:15 O2 Sat by Pulse Oximetry (%) 95 12/31/18 09:00 Labs: CBC, BMP 12/30/18 11:00 12/30/18 11:00 INR, PTT INR 1.02 (0.83-1.09) 12/30/18 05:30
[2019-01-01 08:57] VITALS: BP 136/92; PULSE 73; TEMP 97.9
--- NOTE | 2019-01-01 09:07 | PN ---
Progress Note (short form) - Note Progress Note: 68 year old male history of HTN,HLD, S/P CABG. Patient has two episode of confusion and dizziness, which he describes as feeling of fuzyzy and everything turning black. He could not remember anything for those three minute. Patient denies any otehr focal neurological symptoms, including seizure like activity, hemiparesis, numbness or facial twtitching. His ct head is normal. He denies any previous episode in past. His mri of brain is normal, cta of neck is noraml. He has one episode yesterday , he complain of chest pain and agitation. there is no episode since saturday, and eeg can not be done as tech is sick. Patient is feeling better. NEUROLOGICAL EXAMINATION Alert oriented x 3, speech is normal, no neck stiffness EOMI, PUPILS REACTIVE , no face asymmetry, vf normal 5/5 all ext sensation is normal gait and coordination is normal ct head is normal mri of brain is normal except white matter disease cta of neck no critical stenosis Assessment/Plan 68 year old male history of HTN,HLD, s/p CABG had two episode of dizziness and confusion, these episode seems to be presyncopal episode. Work up negative 2. one episode of agitation yesterday ? panic reaction Plan: eeg can be done outpatient , suspician for seizure is low at this time. - continue aspirin and statin - watch for now Thanking you so much Aung Khan MD
--- NOTE | 2019-01-01 10:27 | PN ---
Progress Note, Physician Chief Complaint: Pt A&Ox3; anxious about neurologic status; no chest pain or dyspnea. His is at bedside. History of Present Illness: Patient is a 68 year old male with a significant past medical history of HTN, HLD, who presents to the ED with 2 transient episodes of confusion that occurred earlier this afternoon. Patient reports experiencing an episode of dizziness this afternoon, stating that he felt like he was going to faint. Denies any room spinning. Pt also states that during this episode he was very confused and did not know who is was. This lasted 3 minutes. He reports experiencing a similar transient episode shortly after, prompting him to come into the ED for further evaluation. - Current Medication List Current Medications: Active Medications Aspirin (Asa -) 81 mg PO DAILY [facility] Last Admin: 12/31/18 10:28 Dose: 81 mg Atorvastatin Calcium (Lipitor -) 40 mg PO HS [facility] Last Admin: 12/31/18 21:55 Dose: 40 mg Metoprolol Succinate (Toprol Xl -) 25 mg PO DAILY [facility] Last Admin: 12/31/18 10:28 Dose: 25 mg Ramipril (Altace -) 2.5 mg PO DAILY [facility] Last Admin: 12/31/18 10:28 Dose: 2.5 mg - Objective Vital Signs: Vital Signs Temperature 97.9 F 01/01/19 08:56 Pulse Rate 73 01/01/19 08:56 Respiratory Rate 18 01/01/19 08:56 Blood Pressure 136/92 01/01/19 08:56 O2 Sat by Pulse Oximetry (%) 95 12/31/18 21:00 Constitutional: Yes: Anxious Eyes: Yes: WNL Labs: CBC, BMP 12/30/18 11:00 12/30/18 11:00 INR, PTT INR 1.02 (0.83-1.09) 12/30/18 05:30 Problem List - Problems (1) Aortic aneurysm Assessment/Plan: Received frecords from [facility] regarding 2010 surgery of a large ascending aorta aneurysm with 30 mm Hemashield graft; the bicuspid valve no calcification or prolapse, and was there left in place (pt specifically requested not to have a mechanical valve). I discussed pt with his mobile lounge driver at [address] [place] [address], Dr. Corley. Pt is followed regularly by her and by her surgeon at [facility]. He has a CTA taken every 2 years; the latest was about one year ago, and was unremarkable. From a cardiac perspective, pt may be followed as an outpatient. This was discussed with him and his . Code(s): I71.9 - AORTIC ANEURYSM OF UNSPECIFIED SITE, WITHOUT RUPTURE (2) Bicuspid aortic valve Code(s): Q23.1 - CONGENITAL INSUFFICIENCY OF AORTIC VALVE (3) Anxiety Code(s): F41.9 - ANXIETY DISORDER, UNSPECIFIED (4) Pre-syncope Code(s): R55 - SYNCOPE AND COLLAPSE
[2019-01-01] MEDS: ASPIRIN 81 MG CHEWABLE TABLETS PO SCH (11:02)
[2019-01-01] MEDS: metoPROLOL SUCCINATE 25 MG TAB.SR.24H (FP) PO SCH (11:02)
[2019-01-01] MEDS: RAMIPRIL 2.5 MG CAPSULE (FP) PO SCH (11:02)
== END 2019-01-01 13:19 | disposition home or self-care (01) | DRG 69 ==
LOC: JER 18:29 → JERBED 22:35 → J4W 12-30 02:11 → OBSVTOIN 12-30 11:53
PROVIDERS: ADMIT Internal Medicine; ATTEND Internal Medicine
DX: G45.9 Transient cerebral ischemic attack, unspecified (principal); I10 Essential (primary) hypertension; I71.9 Aortic aneurysm of unspecified site, without rupture; F41.9 Anxiety disorder, unspecified; Z95.1 Presence of aortocoronary bypass graft; Z95.4 Presence of other heart-valve replacement; E78.5 Hyperlipidemia, unspecified; E66.3 Overweight; Z68.28 Body mass index [BMI] 28.0-28.9, adult; Z87.891 Personal history of nicotine dependence; I25.10 Atherosclerotic heart disease of native coronary artery without angina pectoris
CPT/HCPCS: 36415; 70450-TC; 70496-TC; 70498-TC; 70551-TC; 71045-TC-FY; 80048; 80053; 80061; 81003; 82550; 82607; 82962; 83036; 83721; 83735; 84100; 84443; 84484; 85025; 85610; 93005; 93010; 93306-TC; 97116-GP; 97161-GP; 99283-25; G0378; J7030

== ENCOUNTER 2019-01-22 19:24 | Emergency (ER) | payer OTHER | END 2019-01-22 21:00 | disposition home or self-care (01) | LOC: JERFT 19:24 ==

== ENCOUNTER 2021-04-10 14:10 | Inpatient (IN) | payer OTHER ==
[2021-04-10 17:48] LABS: BASO % 0.8 % (0-2.0); EOS % 0.7 % (0-4.5); HEMATOCRIT 53.8 % (35.4-49); HEMOGLOBIN 17.9 GM/dL (11.7-16.9); LYMPH % 12.6 % (8-40); MCH 28.5 pg (25.7-33.7); MCHC 33.2 g/dl (32.0-35.9); MEAN CELL VOLUME 85.7 fl (80-96); MEAN PLT VOLUME 8.5 fl (7.5-11.1); NEUT % 80.9 % (42.8-82.8); PLATELET COUNT 172 10^3/uL (134-434); RBC 6.28 M/mm3 (4.00-5.60); WHITE BLOOD COUNT 9.2 K/mm3 (4.0-10.0)
[2021-04-10 17:56] LABS: INR 0.9 (0.83-1.09); PROTHROMBIN TIME (PATIENT) 11.1 SEC (9.7-13.0)
[2021-04-10 17:58] LABS: ACTIVATED PTT 36.8 SECONDS (25.2-36.5)
[2021-04-10 18:06] LABS: CHLORIDE 101 mmol/L (98-107); SODIUM 136 mmol/L (136-145)
[2021-04-10 18:10] LABS: ANION GAP 8 MMOL/L (8-16); BLOOD UREA NITROGEN 23.8 mg/dL (7-18); CO2 26 mmol/L (21-32); GLUCOSE,RANDOM 81 mg/dL (74-106); MAGNESIUM 2.2 mg/dL (1.8-2.4)
[2021-04-10 18:13] LABS: CREATININE 1.2 mg/dL (0.55-1.3); SGOT/AST 25 U/L (15-37); SGPT/ALT 36 U/L (13-61)
[2021-04-10 18:15] LABS: BILIRUBIN,TOTAL 0.9 mg/dL (0.2-1); TOT PROT 7.7 g/dl (6.4-8.2)
[2021-04-10 18:16] LABS: ALK PHOS 60 U/L (45-117)
[2021-04-10] MEDS ORDERED: MECLIZINE HCL 25 MG TABLET (FP) PO ONE (20:12)
[2021-04-10] MEDS ORDERED: MECLIZINE HCL 25 MG TABLET (FP) ONE (20:14)
[2021-04-11] MEDS ORDERED: MECLIZINE HCL 25 MG TABLET (FP) PO PRN (02:08)
[2021-04-11 02:26] VITALS: BMI 29.6
[2021-04-11 07:41] LABS: BASO % 0.7 % (0-2.0); EOS % 1.9 % (0-4.5); HEMATOCRIT 52.5 % (35.4-49); HEMOGLOBIN 17.6 GM/dL (11.7-16.9); LYMPH % 14.6 % (8-40); MCHC 33.5 g/dl (32.0-35.9); MEAN CELL VOLUME 86.4 fl (80-96); MEAN PLT VOLUME 8.8 fl (7.5-11.1); MONO % 6.7 % (3.8-10.2); NEUT % 76.1 % (42.8-82.8); PLATELET COUNT 170 10^3/uL (134-434); RBC 6.07 M/mm3 (4.00-5.60); RDW 15.1 % (11.9-15.9); WHITE BLOOD COUNT 7.9 K/mm3 (4.0-10.0)
[2021-04-11 08:10] LABS: CALCIUM 8.7 mg/dL (8.5-10.1)
[2021-04-11 08:11] LABS: ALBUMIN 3.6 g/dl (3.4-5.0)
[2021-04-11 08:14] LABS: CREATININE 1.2 mg/dL (0.55-1.3)
[2021-04-11 08:15] LABS: BILIRUBIN,TOTAL 0.7 mg/dL (0.2-1)
[2021-04-11 08:16] LABS: TOT PROT 6.8 g/dl (6.4-8.2)
[2021-04-11] MEDS: ENOXAPARIN NA (PORCINE) 40 MG/0.4 ML DISP.SYRIN SQ SCH (09:21)
[2021-04-11] MEDS: metoPROLOL SUCCINATE 25 MG TAB.SR.24H (FP) PO SCH (09:22)
[2021-04-11] MEDS: HYDROCHLOROTHIAZIDE 12.5 MG CAPSULE (FP) PO SCH (09:22)
[2021-04-11] MEDS: DOCUSATE SODIUM 100 MG CAPSULE (FP) PO SCH (09:22)
[2021-04-11] MEDS: ASPIRIN 81 MG CHEWABLE TABLETS PO SCH (09:22)
[2021-04-11] MEDS: RAMIPRIL 5 MG CAPSULE PO SCH (09:22)
[2021-04-11] MEDS: ATORVASTATIN CA 40 MG TABLET (FP) PO SCH (21:24)
[2021-04-11] MEDS ORDERED: MECLIZINE HCL 12.5 MG TABLET PO PRN (22:08)
[2021-04-12] MEDS: metoPROLOL SUCCINATE 25 MG TAB.SR.24H (FP) PO SCH (09:09)
[2021-04-12] MEDS: ASPIRIN 81 MG CHEWABLE TABLETS PO SCH (09:09)
[2021-04-12] MEDS: RAMIPRIL 5 MG CAPSULE PO SCH (09:09)
[2021-04-12] MEDS: DOCUSATE SODIUM 100 MG CAPSULE (FP) PO SCH (09:10)
[2021-04-12] MEDS: ENOXAPARIN NA (PORCINE) 40 MG/0.4 ML DISP.SYRIN SQ SCH (09:10)
[2021-04-12] MEDS: HYDROCHLOROTHIAZIDE 12.5 MG CAPSULE (FP) PO SCH (09:10)
[2021-04-12] MEDS: ATORVASTATIN CA 40 MG TABLET (FP) PO SCH (21:39)
[2021-04-13] MEDS: clonazePAM 0.5 MG TABLET PO PRN (09:25)
[2021-04-13] MEDS: ASPIRIN 81 MG CHEWABLE TABLETS PO SCH (09:26)
[2021-04-13] MEDS: metoPROLOL SUCCINATE 25 MG TAB.SR.24H (FP) PO SCH (09:26)
[2021-04-13] MEDS: HYDROCHLOROTHIAZIDE 12.5 MG CAPSULE (FP) PO SCH (09:26)
[2021-04-13] MEDS: RAMIPRIL 5 MG CAPSULE PO SCH (09:26)
[2021-04-13] MEDS: DOCUSATE SODIUM 100 MG CAPSULE (FP) PO SCH (09:27)
[2021-04-13] MEDS: ENOXAPARIN NA (PORCINE) 40 MG/0.4 ML DISP.SYRIN SQ SCH (09:27)
[2021-04-13] MEDS: ESCITALOPRAM OXALATE 10 MG TABLET PO SCH (12:34)
[2021-04-13] MEDS: ATORVASTATIN CA 40 MG TABLET (FP) PO SCH (21:20)
[2021-04-14] MEDS: DOCUSATE SODIUM 100 MG CAPSULE (FP) PO SCH (09:29)
[2021-04-14] MEDS: HYDROCHLOROTHIAZIDE 12.5 MG CAPSULE (FP) PO SCH (09:29)
[2021-04-14] MEDS: metoPROLOL SUCCINATE 25 MG TAB.SR.24H (FP) PO SCH (09:29)
[2021-04-14] MEDS: ENOXAPARIN NA (PORCINE) 40 MG/0.4 ML DISP.SYRIN SQ SCH (09:29)
[2021-04-14] MEDS: clonazePAM 0.5 MG TABLET PO PRN (09:29)
[2021-04-14] MEDS: RAMIPRIL 5 MG CAPSULE PO SCH (09:29)
[2021-04-14] MEDS: ASPIRIN 81 MG CHEWABLE TABLETS PO SCH (09:29)
[2021-04-14] MEDS: ESCITALOPRAM OXALATE 10 MG TABLET PO SCH (09:29)
[2021-04-14 09:31] VITALS: BP 131/81; PULSE 71; TEMP 98.2
[2021-04-14] MEDS ORDERED: ESCITALOPRAM OXALATE 10 MG TABLET PO SCH (10:00)
== END 2021-04-14 16:08 | disposition home or self-care (01) | DRG 312 ==
LOC: JER 14:10 → JERBED 19:40 → J4W 04-11 01:43 → OBSVTOIN 04-11 02:09
PROVIDERS: ADMIT Internal Medicine; ATTEND Internal Medicine
DX: R55 Syncope and collapse (principal); I10 Essential (primary) hypertension; E78.5 Hyperlipidemia, unspecified; I25.10 Atherosclerotic heart disease of native coronary artery without angina pectoris; R53.1 Weakness; R41.82 Altered mental status, unspecified; F41.9 Anxiety disorder, unspecified; Z95.2 Presence of prosthetic heart valve; Z95.1 Presence of aortocoronary bypass graft
CPT/HCPCS: 36415; 70450-TC; 71046-TC-FY; 80053; 82550; 82553; 82962; 83036; 83735; 84443; 84484; 85025; 85610; 85730; 93005; 93010; 93306-TC; 93880-TC; 99285-25; C9803; G0378; U0003; U0005

== ENCOUNTER 2021-04-29 16:19 | Inpatient (IN) | payer OTHER ==
[2021-04-29] MEDS ORDERED: LORazepam 2 MG/ML SDV VIAL IVPUSH ONE (18:15)
[2021-04-29] MEDS ORDERED: LORazepam 2 MG/ML SDV VIAL ONE (18:16)
[2021-04-29 18:50] LABS: BASO % 1.2 % (0-2.0); EOS % 1.5 % (0-4.5); HEMOGLOBIN 17.5 GM/dL (11.7-16.9); LYMPH % 14.4 % (8-40); MCH 28.7 pg (25.7-33.7); MCHC 33.6 g/dl (32.0-35.9); MEAN CELL VOLUME 85.5 fl (80-96); MEAN PLT VOLUME 8.8 fl (7.5-11.1); MONO % 6.2 % (3.8-10.2); NEUT % 76.7 % (42.8-82.8); PLATELET COUNT 193 10^3/uL (134-434); RBC 6.08 M/mm3 (4.00-5.60); RDW 14.9 % (11.9-15.9); WHITE BLOOD COUNT 9.2 K/mm3 (4.0-10.0)
[2021-04-29] MEDS ORDERED: levETIRAcetam 500 MG TABLET (FP) PO SCH (19:00)
[2021-04-29 19:15] LABS: ALBUMIN 3.8 g/dl (3.4-5.0); BLOOD UREA NITROGEN 20.1 mg/dL (7-18); CALCIUM 9.2 mg/dL (8.5-10.1); MAGNESIUM 2.1 mg/dL (1.8-2.4)
[2021-04-29 19:18] LABS: CREATININE 1.3 mg/dL (0.55-1.3)
[2021-04-29 19:20] LABS: BILIRUBIN,TOTAL 0.4 mg/dL (0.2-1); TOT PROT 7.4 g/dl (6.4-8.2)
[2021-04-29] MEDS ORDERED: SODIUM CHLORIDE 0.9% 500 ML INFUS.BAG IV ONE (19:29)
[2021-04-29] MEDS ORDERED: levETIRAcetam 250 MG TABLET PO ONE (21:25)
[2021-04-29] MEDS ORDERED: levETIRAcetam 500 MG TABLET (FP) PO ONE (21:27)
[2021-04-29 22:30] LABS: EPI CELLS 1 /uL (0-25.1); HYALINE CASTS 0 /uL (0-3.1); URINE APPEARANCE CLEAR; URINE BACTERIA 5 /uL (0-1359); URINE BILIRUBIN NEGATIVE (NEGATIVE); URINE COLOR YELLOW; URINE GLUCOSE (UA) NEGATIVE (NEGATIVE); URINE KETONE NEGATIVE (NEGATIVE); URINE LEUK ESTERASE NEGATIVE (NEGATIVE); URINE NITRITE NEGATIVE (NEGATIVE); URINE PROTEIN NEGATIVE (NEGATIVE); URINE RBC 9 /uL (0-23.9); URINE UROBILINOGEN 0.2 mg/dL (0.2-1.0); URINE WBC 3 /uL (0-25.8)
[2021-04-30] MEDS ORDERED: MECLIZINE HCL 25 MG TABLET (FP) PO PRN (01:12)
[2021-04-30 01:15] VITALS: BMI 30.2
[2021-04-30] MEDS: levETIRAcetam 250 MG TABLET PO SCH ×2 (09:38→21:18)
[2021-04-30] MEDS: DOCUSATE SODIUM 100 MG CAPSULE (FP) PO SCH (09:38)
[2021-04-30] MEDS: ENOXAPARIN NA (PORCINE) 40 MG/0.4 ML DISP.SYRIN SQ SCH (09:39)
[2021-04-30] MEDS: HYDROCHLOROTHIAZIDE 12.5 MG CAPSULE (FP) PO SCH (09:44)
[2021-04-30] MEDS: metoPROLOL SUCCINATE 25 MG TAB.SR.24H (FP) PO SCH (09:44)
[2021-04-30] MEDS: RAMIPRIL 5 MG CAPSULE PO SCH (09:44)
[2021-04-30] MEDS ORDERED: ATORVASTATIN CA 40 MG TABLET (FP) PO SCH (22:00)
[2021-04-30] MEDS ORDERED: DONEPEZIL HCL 5 MG TABLET (FP) PO SCH (22:00)
[2021-05-01 09:04] LABS: BASO % 0.8 % (0-2.0); EOS % 2.9 % (0-4.5); HEMATOCRIT 52.4 % (35.4-49); HEMOGLOBIN 17.5 GM/dL (11.7-16.9); LYMPH % 15.6 % (8-40); MCH 28.9 pg (25.7-33.7); MCHC 33.5 g/dl (32.0-35.9); MEAN CELL VOLUME 86.3 fl (80-96); MONO % 7.1 % (3.8-10.2); NEUT % 73.6 % (42.8-82.8); PLATELET COUNT 163 10^3/uL (134-434); RBC 6.07 M/mm3 (4.00-5.60); RDW 14.3 % (11.9-15.9); WHITE BLOOD COUNT 7.2 K/mm3 (4.0-10.0)
[2021-05-01 09:32] LABS: ALBUMIN 3.4 g/dl (3.4-5.0); BLOOD UREA NITROGEN 20.6 mg/dL (7-18); CALCIUM 9.1 mg/dL (8.5-10.1)
[2021-05-01 09:36] LABS: CREATININE 1.2 mg/dL (0.55-1.3)
[2021-05-01 09:37] LABS: BILIRUBIN,TOTAL 0.7 mg/dL (0.2-1); TOT PROT 6.8 g/dl (6.4-8.2)
[2021-05-01] MEDS: HYDROCHLOROTHIAZIDE 12.5 MG CAPSULE (FP) PO SCH (10:02)
[2021-05-01] MEDS: metoPROLOL SUCCINATE 25 MG TAB.SR.24H (FP) PO SCH (10:02)
[2021-05-01] MEDS: ENOXAPARIN NA (PORCINE) 40 MG/0.4 ML DISP.SYRIN SQ SCH (10:02)
[2021-05-01] MEDS: RAMIPRIL 5 MG CAPSULE PO SCH (10:02)
[2021-05-01] MEDS: DOCUSATE SODIUM 100 MG CAPSULE (FP) PO SCH (10:02)
[2021-05-01] MEDS: levETIRAcetam 250 MG TABLET PO SCH (10:02)
[2021-05-01 15:03] VITALS: BP 109/67; PULSE 68; TEMP 97.8
== END 2021-05-01 18:05 | disposition home or self-care (01) | DRG 101 ==
LOC: JER 16:19 → JERBED 18:24 → J6S 04-30 01:00
PROVIDERS: ADMIT Internal Medicine; ATTEND Internal Medicine
DX: R56.9 Unspecified convulsions (principal); R42 Dizziness and giddiness; I10 Essential (primary) hypertension; I25.10 Atherosclerotic heart disease of native coronary artery without angina pectoris; E78.5 Hyperlipidemia, unspecified; F03.90 Unspecified dementia, unspecified severity, without behavioral disturbance, psychotic disturbance, mood disturbance, and anxiety; F41.9 Anxiety disorder, unspecified; Z95.1 Presence of aortocoronary bypass graft; Z95.2 Presence of prosthetic heart valve
CPT/HCPCS: 36415; 71045-TC-FY; 80053; 81003; 82550; 82553; 83735; 84484; 85025; 93005; 93010; 99291; C9803; U0003; U0005

== ENCOUNTER 2021-11-03 16:04 | Emergency (ER) | payer OTHER ==
[2021-11-03 16:17] VITALS: BP 130/79; PULSE 80; TEMP 98.4; BMI 31.0
[2021-11-03] MEDS ORDERED: DIPHTH,PERTUSS(ACELL),TET 0.5 ML DISP.SYRIN IM ONE ×2 (18:02→18:06)
== END 2021-11-03 18:35 | disposition home or self-care (01) ==
LOC: JERFT 16:04
PROC: 2W3KX1Z Immobilization of Left Finger using Splint (ICD-10-PCS; principal; 2021-11-03)
PROC: 3E0234Z Introduction of Serum, Toxoid and Vaccine into Muscle, Percutaneous Approach (ICD-10-PCS; 2021-11-03)
DX: S61.201A Unspecified open wound of left index finger without damage to nail, initial encounter (principal); W26.8XXA Contact with other sharp object(s), not elsewhere classified, initial encounter
CPT/HCPCS: 29130; 90471; 90715; 99284-25

== ENCOUNTER 2021-11-12 17:41 | Inpatient (IN) | payer OTHER ==
[2021-11-12] MEDS ORDERED: PIPERACILLIN/TAZOB 4.5 GM 4.5 GM in DEXTROSE 5%-WATER 100 ML IVPB ONE (18:47)
[2021-11-12] MEDS ORDERED: VANCOMYCIN 1,000 MG in DEXTROSE 5%-WATER - 250 ML IVPB ONE (18:50)
[2021-11-12] MEDS ORDERED: KETOROLAC TROMETHAMINE 15 MG/ML VIAL IVPUSH ONE (18:55)
[2021-11-12] MEDS ORDERED: KETOROLAC TROMETHAMINE 15 MG/ML VIAL ONE (20:10)
[2021-11-12] MEDS ORDERED: PIPERACILLIN/TAZOB 4.5 GM 4.5 GM/100 ML BAG IVPB ONE (20:10)
[2021-11-12 20:24] LABS: EPI CELLS 2 /uL (0-25.1); HYALINE CASTS 1 /uL (0-3.1); URINE APPEARANCE CLEAR; URINE BACTERIA 0 /uL (0-1359); URINE BILIRUBIN NEGATIVE (NEGATIVE); URINE COLOR YELLOW; URINE GLUCOSE (UA) NEGATIVE (NEGATIVE); URINE KETONE NEGATIVE (NEGATIVE); URINE LEUK ESTERASE NEGATIVE (NEGATIVE); URINE NITRITE NEGATIVE (NEGATIVE); URINE PROTEIN NEGATIVE (NEGATIVE); URINE RBC 6 /uL (0-23.9); URINE UROBILINOGEN 0.2 mg/dL (0.2-1.0); URINE WBC 9 /uL (0-25.8)
[2021-11-12 20:42] LABS: BASO % 0.8 % (0-2.0); EOS % 3.1 % (0-4.5); HEMATOCRIT 49.1 % (35.4-49); HEMOGLOBIN 16.2 GM/dL (11.7-16.9); LYMPH % 9.8 % (8-40); MCH 28.2 pg (25.7-33.7); MCHC 32.9 g/dl (32.0-35.9); MEAN CELL VOLUME 85.5 fl (80-96); MEAN PLT VOLUME 8.8 fl (7.5-11.1); MONO % 7.8 % (3.8-10.2); NEUT % 78.5 % (42.8-82.8); PLATELET COUNT 151 10^3/uL (134-434); RBC 5.75 M/mm3 (4.00-5.60); WHITE BLOOD COUNT 11.4 K/mm3 (4.0-10.0)
[2021-11-12] MEDS ORDERED: VANCOMYCIN 1 GRAM (PRE-DOCKED) 1,000 MG/250 ML BAG IVPB ONE (20:56)
[2021-11-12 21:01] LABS: CALCIUM 8.3 mg/dL (8.5-10.1)
[2021-11-12 21:02] LABS: ALBUMIN 3.6 g/dl (3.4-5.0)
[2021-11-12 21:05] LABS: CREATININE 1.6 mg/dL (0.55-1.3)
[2021-11-12 21:06] LABS: BILIRUBIN,TOTAL 0.5 mg/dL (0.2-1)
[2021-11-13 01:17] VITALS: BMI 29.3
[2021-11-13] MEDS ORDERED: PIPERACILLIN/TAZOBACTAM 3.375 GM VIAL IVPB ONE ×3 (02:15→16:17)
[2021-11-13] MEDS ORDERED: DEXTROSE 5%-WATER - 50 ML IVPB ONE ×3 (02:15→16:17)
[2021-11-13] MEDS: PIPERACILLIN/TAZOB 3.375 GM 3.375 GM in DEXTROSE 5%-WATER - 50 ML IVPB SCH ×3 (02:41→21:00)
[2021-11-13] MEDS: VANCOMYCIN 1 GRAM (PRE-DOCKED) 1 GM/200 ML BAG IVPB SCH ×2 (05:38→17:04)
[2021-11-13 08:33] LABS: BASO % 0.7 % (0-2.0); EOS % 4.3 % (0-4.5); HEMATOCRIT 47.8 % (35.4-49); HEMOGLOBIN 15.4 GM/dL (11.7-16.9); LYMPH % 10.3 % (8-40); MCHC 32.3 g/dl (32.0-35.9); MEAN CELL VOLUME 86.5 fl (80-96); MEAN PLT VOLUME 9.5 fl (7.5-11.1); MONO % 6.9 % (3.8-10.2); NEUT % 77.8 % (42.8-82.8); PLATELET COUNT 154 10^3/uL (134-434); RBC 5.52 M/mm3 (4.00-5.60); RDW 14.9 % (11.9-15.9); WHITE BLOOD COUNT 9.2 K/mm3 (4.0-10.0)
[2021-11-13 09:10] LABS: CALCIUM 8.3 mg/dL (8.5-10.1)
[2021-11-13 09:11] LABS: ALBUMIN 3.1 g/dl (3.4-5.0); BLOOD UREA NITROGEN 26.2 mg/dL (7-18)
[2021-11-13 09:14] LABS: CREATININE 1.3 mg/dL (0.55-1.3)
[2021-11-13 09:16] LABS: BILIRUBIN,TOTAL 0.7 mg/dL (0.2-1); TOT PROT 6.1 g/dl (6.4-8.2)
[2021-11-13] MEDS ORDERED: PNEUMOC 13-VAL CONJ-DIP CRM/PF 0.5 ML DISP.SYRIN IM ONE (10:00)
[2021-11-13] MEDS: DOCUSATE SODIUM 100 MG CAPSULE (FP) PO SCH (10:15)
[2021-11-13] MEDS: HYDROCHLOROTHIAZIDE 12.5 MG CAPSULE (FP) PO SCH (10:15)
[2021-11-13] MEDS: metoPROLOL SUCCINATE 25 MG TAB.SR.24H (FP) PO SCH (10:17)
[2021-11-13] MEDS: levETIRAcetam 250 MG TABLET PO SCH ×2 (10:17→21:41)
[2021-11-13] MEDS: ENOXAPARIN NA (PORCINE) 40 MG/0.4 ML DISP.SYRIN SQ SCH (10:18)
[2021-11-13] MEDS ORDERED: ACETAMINOPHEN 325 MG TABLET (FP) PO PRN (15:43)
[2021-11-13] MEDS: RAMIPRIL 5 MG CAPSULE PO SCH (16:28)
[2021-11-13] MEDS: ATORVASTATIN CA 40 MG TABLET (FP) PO SCH (21:41)
[2021-11-13 23:32] LABS: PH,URINE 5.5 (5.0-8.0); URINE APPEARANCE CLEAR; URINE BILIRUBIN NEGATIVE (NEGATIVE); URINE COLOR YELLOW; URINE GLUCOSE (UA) NEGATIVE (NEGATIVE); URINE KETONE NEGATIVE (NEGATIVE); URINE LEUK ESTERASE NEGATIVE (NEGATIVE); URINE NITRITE NEGATIVE (NEGATIVE); URINE PROTEIN NEGATIVE (NEGATIVE)
[2021-11-14 08:28] LABS: BASO % 1.2 % (0-2.0); EOS % 6.3 % (0-4.5); HEMATOCRIT 46.8 % (35.4-49); HEMOGLOBIN 15.3 GM/dL (11.7-16.9); LYMPH % 10.4 % (8-40); MCHC 32.8 g/dl (32.0-35.9); MEAN CELL VOLUME 85.6 fl (80-96); MEAN PLT VOLUME 9.2 fl (7.5-11.1); MONO % 7.3 % (3.8-10.2); NEUT % 74.8 % (42.8-82.8); PLATELET COUNT 161 10^3/uL (134-434); RBC 5.47 M/mm3 (4.00-5.60); RDW 15.1 % (11.9-15.9); WHITE BLOOD COUNT 6.2 K/mm3 (4.0-10.0)
[2021-11-14 08:45] LABS: CALCIUM 8.2 mg/dL (8.5-10.1)
[2021-11-14 08:46] LABS: ALBUMIN 2.9 g/dl (3.4-5.0); BLOOD UREA NITROGEN 23.2 mg/dL (7-18)
[2021-11-14 08:47] LABS: CREATININE 1.2 mg/dL (0.55-1.3)
[2021-11-14 08:48] LABS: BILIRUBIN,TOTAL 0.6 mg/dL (0.2-1)
[2021-11-14] MEDS ORDERED: PIPERACILLIN/TAZOBACTAM 3.375 GM VIAL IVPB ONE ×2 (09:52→16:36)
[2021-11-14] MEDS ORDERED: DEXTROSE 5%-WATER - 50 ML IVPB ONE ×2 (09:53→16:36)
[2021-11-14] MEDS ORDERED: VANCOMYCIN 1 GM PREMIX - 1 GM/200 ML BAG IVPB SCH (10:00)
[2021-11-14] MEDS: HYDROCHLOROTHIAZIDE 12.5 MG CAPSULE (FP) PO SCH (10:03)
[2021-11-14] MEDS: ASPIRIN 81 MG CHEWABLE TABLETS PO SCH (10:03)
[2021-11-14] MEDS: ESCITALOPRAM OXALATE 10 MG TABLET PO SCH (10:03)
[2021-11-14] MEDS: metoPROLOL SUCCINATE 25 MG TAB.SR.24H (FP) PO SCH (10:03)
[2021-11-14] MEDS: DONEPEZIL HCL 5 MG TABLET (FP) PO SCH (10:03)
[2021-11-14] MEDS: RAMIPRIL 5 MG CAPSULE PO SCH (10:03)
[2021-11-14] MEDS: levETIRAcetam 250 MG TABLET PO SCH ×2 (10:03→22:50)
[2021-11-14] MEDS: DOCUSATE SODIUM 100 MG CAPSULE (FP) PO SCH (10:03)
[2021-11-14] MEDS: PIPERACILLIN/TAZOB 3.375 GM 3.375 GM in DEXTROSE 5%-WATER - 50 ML IVPB SCH ×2 (10:04→17:09)
[2021-11-14] MEDS: ENOXAPARIN NA (PORCINE) 40 MG/0.4 ML DISP.SYRIN SQ SCH (10:04)
[2021-11-14] MEDS: ATORVASTATIN CA 40 MG TABLET (FP) PO SCH (22:50)
[2021-11-15] MEDS ORDERED: PIPERACILLIN/TAZOBACTAM 3.375 GM VIAL IVPB ONE ×3 (02:47→18:06)
[2021-11-15] MEDS ORDERED: DEXTROSE 5%-WATER - 50 ML IVPB ONE ×3 (02:47→18:06)
[2021-11-15] MEDS: PIPERACILLIN/TAZOB 3.375 GM 3.375 GM in DEXTROSE 5%-WATER - 50 ML IVPB SCH ×3 (02:55→18:50)
[2021-11-15 08:29] LABS: BASO % 1.1 % (0-2.0); EOS % 7.1 % (0-4.5); HEMATOCRIT 49.4 % (35.4-49); HEMOGLOBIN 16.1 GM/dL (11.7-16.9); LYMPH % 10.5 % (8-40); MCH 28.3 pg (25.7-33.7); MCHC 32.6 g/dl (32.0-35.9); MEAN CELL VOLUME 86.7 fl (80-96); MEAN PLT VOLUME 8.8 fl (7.5-11.1); MONO % 6.6 % (3.8-10.2); NEUT % 74.7 % (42.8-82.8); PLATELET COUNT 181 10^3/uL (134-434); RDW 15.1 % (11.9-15.9)
[2021-11-15 09:00] LABS: CALCIUM 8.9 mg/dL (8.5-10.1)
[2021-11-15 09:01] LABS: ALBUMIN 3.2 g/dl (3.4-5.0); BLOOD UREA NITROGEN 20.6 mg/dL (7-18)
[2021-11-15 09:04] LABS: CREATININE 1.2 mg/dL (0.55-1.3)
[2021-11-15 09:05] LABS: BILIRUBIN,TOTAL 0.7 mg/dL (0.2-1); TOT PROT 6.4 g/dl (6.4-8.2)
[2021-11-15] MEDS: DOCUSATE SODIUM 100 MG CAPSULE (FP) PO SCH (10:23)
[2021-11-15] MEDS: levETIRAcetam 250 MG TABLET PO SCH ×2 (10:23→22:16)
[2021-11-15] MEDS: DONEPEZIL HCL 5 MG TABLET (FP) PO SCH (10:23)
[2021-11-15] MEDS: ASPIRIN 81 MG CHEWABLE TABLETS PO SCH (10:23)
[2021-11-15] MEDS: HYDROCHLOROTHIAZIDE 12.5 MG CAPSULE (FP) PO SCH (10:23)
[2021-11-15] MEDS: ESCITALOPRAM OXALATE 10 MG TABLET PO SCH (10:24)
[2021-11-15] MEDS: metoPROLOL SUCCINATE 25 MG TAB.SR.24H (FP) PO SCH (10:24)
[2021-11-15] MEDS: RAMIPRIL 5 MG CAPSULE PO SCH (10:24)
[2021-11-15] MEDS: ENOXAPARIN NA (PORCINE) 40 MG/0.4 ML DISP.SYRIN SQ SCH (10:30)
[2021-11-15] MEDS: ATORVASTATIN CA 40 MG TABLET (FP) PO SCH (22:16)
[2021-11-16] MEDS ORDERED: PIPERACILLIN/TAZOBACTAM 3.375 GM VIAL IVPB ONE ×2 (00:44→09:07)
[2021-11-16] MEDS ORDERED: DEXTROSE 5%-WATER - 50 ML IVPB ONE ×2 (00:44→09:07)
[2021-11-16] MEDS: PIPERACILLIN/TAZOB 3.375 GM 3.375 GM in DEXTROSE 5%-WATER - 50 ML IVPB SCH ×2 (01:19→10:47)
[2021-11-16 01:36] VITALS: TEMP 98.3
[2021-11-16 06:35] VITALS: BP 112/59; PULSE 68
[2021-11-16] MEDS: DOCUSATE SODIUM 100 MG CAPSULE (FP) PO SCH (09:10)
[2021-11-16] MEDS: ASPIRIN 81 MG CHEWABLE TABLETS PO SCH (09:10)
[2021-11-16] MEDS: HYDROCHLOROTHIAZIDE 12.5 MG CAPSULE (FP) PO SCH (09:10)
[2021-11-16] MEDS: levETIRAcetam 250 MG TABLET PO SCH (09:10)
[2021-11-16] MEDS: metoPROLOL SUCCINATE 25 MG TAB.SR.24H (FP) PO SCH (09:10)
[2021-11-16] MEDS: ENOXAPARIN NA (PORCINE) 40 MG/0.4 ML DISP.SYRIN SQ SCH (09:11)
[2021-11-16] MEDS: ESCITALOPRAM OXALATE 10 MG TABLET PO SCH (09:11)
[2021-11-16] MEDS: RAMIPRIL 5 MG CAPSULE PO SCH (09:11)
[2021-11-16] MEDS: DONEPEZIL HCL 5 MG TABLET (FP) PO SCH (09:11)
== END 2021-11-16 16:03 | disposition home or self-care (01) | DRG 603 ==
LOC: JER 17:41 → JERBED 19:46 → J7W 11-13 00:42
PROVIDERS: ADMIT Internal Medicine; ATTEND Internal Medicine
DX: L03.113 Cellulitis of right upper limb (principal); E78.5 Hyperlipidemia, unspecified; I10 Essential (primary) hypertension; I25.10 Atherosclerotic heart disease of native coronary artery without angina pectoris; I35.0 Nonrheumatic aortic (valve) stenosis; F03.90 Unspecified dementia, unspecified severity, without behavioral disturbance, psychotic disturbance, mood disturbance, and anxiety; F32.A Depression, unspecified
CPT/HCPCS: 36415; 73130-TC-RT-FY; 80053; 81003; 83036; 85025; 85651; 86140; 87040; 87086; 90670; 93005; 93010; 99285-25; C9803-CS; U0003; U0005

== ENCOUNTER 2023-01-15 11:55 | Emergency (ER) | payer OTHER ==
[2023-01-15 12:06] VITALS: BMI 29.7
[2023-01-15] MEDS ORDERED: CEFTRIAXONE 1 GM in DEXTROSE 5%-WATER - 100 ML IVPB ONE (13:29)
[2023-01-15] MEDS ORDERED: DIPHTH,PERTUSS(ACELL),TET 0.5 ML DISP.SYRIN IM ONE ×2 (13:31→13:44)
[2023-01-15] MEDS ORDERED: CEFTRIAXONE 1 GM/50 ML BAG ONE (13:49)
[2023-01-15 13:59] LABS: BASO % 0.7 % (0-2.0); EOS % 3.2 % (0-4.5); HEMATOCRIT 48.9 % (35.4-49); HEMOGLOBIN 16.3 GM/dL (11.7-16.9); MCH 28.3 pg (25.7-33.7); MCHC 33.3 g/dl (32.0-35.9); MEAN CELL VOLUME 84.8 fl (80-96); MEAN PLT VOLUME 9.4 fl (7.5-11.1); MONO % 6.2 % (3.8-10.2); NEUT % 79.9 % (42.8-82.8); PLATELET COUNT 177 10^3/uL (134-434); RBC 5.76 M/mm3 (4.00-5.60); RDW 14.9 % (11.9-15.9); WHITE BLOOD COUNT 9.5 K/mm3 (4.0-10.0)
[2023-01-15 14:15] LABS: POTASSIUM 5.8 mmol/L (3.5-5.1)
[2023-01-15 14:17] LABS: CALCIUM 9.2 mg/dL (8.5-10.1)
[2023-01-15 14:18] LABS: ALBUMIN 3.8 g/dl (3.4-5.0); BLOOD UREA NITROGEN 22.4 mg/dL (7-18)
[2023-01-15 14:23] LABS: BILIRUBIN,TOTAL 0.8 mg/dL (0.2-1); TOT PROT 6.9 g/dl (6.4-8.2)
[2023-01-15 15:18] LABS: POTASSIUM 4.6 mmol/L (3.5-5.1)
[2023-01-15 15:20] LABS: CALCIUM 9.2 mg/dL (8.5-10.1)
[2023-01-15 15:42] VITALS: BP 108/75; PULSE 72; RESP 20; TEMP 98.2
== END 2023-01-15 16:18 | disposition home or self-care (01) ==
LOC: JERFT 11:55 → JER 11:55 → JERFT 16:18
PROC: 3E03329 Introduction of Other Anti-infective into Peripheral Vein, Percutaneous Approach (ICD-10-PCS; principal; 2023-01-15)
PROC: 3E0234Z Introduction of Serum, Toxoid and Vaccine into Muscle, Percutaneous Approach (ICD-10-PCS; 2023-01-15)
DX: K08.89 Other specified disorders of teeth and supporting structures (principal); K12.2 Cellulitis and abscess of mouth; K05.00 Acute gingivitis, plaque induced; E87.5 Hyperkalemia; N28.89 Other specified disorders of kidney and ureter
CPT/HCPCS: 36415; 80048; 80053; 85025; 85651; 90471; 90715; 93005; 93010; 96365; 99284-25